=== PATIENT | female | born 1975 | race Caucasian/White ===

== ENCOUNTER 2018-11-15 10:17 | Emergency (ER) | payer BC ==
[2018-11-15 10:30] VITALS: BP 118/72
--- NOTE | 2018-11-15 11:24 | XRAY Report ---
Reason: pain, fall Procedure Date: 11/15/2018 Accession Number: [id number] / [id number] Procedure: XR - Foot 3 View RT CPT Code: FULL RESULT: EXAM: RIGHT FOOT RADIOGRAPHY EXAM DATE: 11/15/2018 11:08 AM. CLINICAL HISTORY: Pain, fall. COMPARISON: None. TECHNIQUE: 3 views. FINDINGS: Bones: Normal. No fractures or bone lesions. Joints: Normal. No subluxations. Soft Tissues: Normal. No soft tissue swelling. IMPRESSION: Normal foot radiography. [facility]
--- NOTE | 2018-11-15 11:26 | XRAY Report ---
Reason: pain, fall Procedure Date: 11/15/2018 Accession Number: [id number] / [id number] Procedure: XR - Knee 3 View RT CPT Code: FULL RESULT: EXAM: RIGHT KNEE RADIOGRAPHY EXAM DATE: 11/15/2018 11:08 AM. CLINICAL HISTORY: Pain, fall. COMPARISON: None. TECHNIQUE: 3 views. FINDINGS: Bones: Normal. No fractures or bone lesions. Joints: Normal. No effusion. No subluxations. Soft Tissues: Normal. No soft tissue swelling. IMPRESSION: Normal knee radiography. [facility]
--- NOTE | 2018-11-15 11:26 | XRAY Report ---
Reason: pain, fall Procedure Date: 11/15/2018 Accession Number: [id number] / [id number] Procedure: XR - Tib/Fib RT CPT Code: FULL RESULT: EXAM: RIGHT TIBIA/FIBULA RADIOGRAPHY EXAM DATE: 11/15/2018 11:08 AM. CLINICAL HISTORY: Pain, fall. COMPARISON: None. TECHNIQUE: 2 views. FINDINGS: Bones: Normal. No fracture or bone lesion. Joints: The visualized knee and ankle joints are normal. No effusions. Soft Tissues: Mild right ankle swelling. IMPRESSION: 1. No fracture or malalignment. 2. Mild right ankle swelling noted. 3. If patient remains symptomatic, recommend follow up in 10-14 days. [facility]
--- NOTE | 2018-11-15 11:35 | ED Physician Documentation ---
PD HPI LOWER EXT INJURY - Stated complaint Stated Complaint: GLF/R KNEE INJ - Chief complaint Chief Complaint: Trauma Ext - History obtained from History obtained from: Patient - History of Present Illness PD HPI LOW EXT INJURY LOCATION: Right, Knee, Foot Type of injury: Fall Where injury occurred: Park Timing - onset: Last night Timing - duration: Days (1) Timing - details: Abrupt onset, Still present Improved by: Rest, Immobilization Worsened by: Moving, Palpating Associated symptoms: Swelling. No: Weakness, Numbness Contributing factors: No: Anticoagulated Similar symptoms before: Has not had sx before Recently seen: Not recently seen - Additional information Additional information: . 43-year-old female who is visiting here from [place] was out on a nature walk yesterday when she was walking down a small embankment she came across the small [place] and she went to jump over the top of the [place] and her foot hit the other side of the [place] sooner than she expected her knee collapsed. She feels she her knee is unstable and will give out on her. She also has some pain in her foot as well that is better today than last night. She states the pain is mostly in her heel. Review of Systems Constitutional: denies: Fever Eyes: denies: Decreased vision Ears: denies: Ear pain Nose: denies: Congestion Cardiac: denies: Palpitations Respiratory: denies: Dyspnea, Cough PD PAST MEDICAL HISTORY - Allergies Allergies/Adverse Reactions: Allergies Allergy/AdvReac Type Severity Reaction Status Date / Time opiates AdvReac Unknown Uncoded 11/15/18 10:30 PD ED PE NORMAL - Vitals Vital signs reviewed: Yes (normal ) - General General: Alert and oriented X 3, No acute distress, Well developed/nourished - HEENT HEENT: Atraumatic, PERRL, EOMI - Respiratory Respiratory: No respiratory distress - Derm Derm: Normal color, Warm and dry, No rash - Extremities Extremities: Other (There is the appearance of a joint effusion on the right knee. The medial collateral ligament is lax on testing with corresponding pain to the lateral knee. The anterior cruciate is lax as well with comparision to the left. distal n/v is intact. There is mild swelling of the lateral malleolus without much tenderness and no tenderness to the heal to direct palpation. There is good ROM to the foot and ankle without much pain. 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 No fracture or malalignment. Mild right ankle swelling noted. If patient remains symptomatic, recommend follow-up in 10 to 14 days.), EMP read indepedently, See rad report foot Radiology: Prelim report reviewed (Impression: Normal foot radiography.), EMP read indepedently, See rad report PD MEDICAL DECISION MAKING - ED course Complexity details: reviewed results, re-evaluated patient, considered differential, d/w patient ED course: 43-year-old female with a right knee sprain appears to have medial collateral and anterior cruciate ligament strain on ligamentous testing. X-rays are without evidence of fracture. She is placed into a knee immobilizer. Her ankle and foot do not appear otherwise injured significantly. Departure - Departure Disposition: 01 Home, Self Care Clinical Impression: Knee MCL sprain Qualifiers: Encounter type: initial encounter Laterality: right Qualified Code(s): S83.411A - Sprain of medial collateral ligament of right knee, initial encounter Sprain of anterior cruciate ligament of right knee Qualifiers: Encounter type: initial encounter Qualified Code(s): S83.511A - Sprain of anterior cruciate ligament of right knee, initial encounter Condition: Stable Instructions: ED Sprain Knee, ED Sprain Knee Collateral Ligaments Follow-Up: Your, doctor [Other] Comments: Wear the knee immobilizer for stabilization of your knee and follow-up with an orthopedic doctor at home when you return.
== END 2018-11-15 12:01 | disposition home or self-care (01) ==
LOC: ED 10:17
DX: S83.411A Sprain of medial collateral ligament of right knee, initial encounter (principal); S83.511A Sprain of anterior cruciate ligament of right knee, initial encounter; W18.39XA Other fall on same level, initial encounter; Y93.39 Activity, other involving climbing, rappelling and jumping off; Y92.830 Public park as the place of occurrence of the external cause
CPT/HCPCS: 99283